=== PATIENT | female | born 1965 | race Caucasian/White ===

== ENCOUNTER 2021-06-18 09:55 | Emergency (ER) | payer OTHER ==
[2021-06-18 10:00] VITALS: BP 126/72; PULSE 84; TEMP 98.7; BMI 28.3
[2021-06-18 11:54] LABS: BASO % 0.7 % (0-2.0); EOS % 4.6 % (0-4.5); HEMATOCRIT 38.4 % (32.4-45.2); HEMOGLOBIN 12.8 GM/dL (10.7-15.3); LYMPH % 22.9 % (8-40); MCH 27.1 pg (25.7-33.7); MCHC 33.2 g/dl (32.0-36.0); MEAN CELL VOLUME 81.4 fl (80-96); MEAN PLT VOLUME 6.9 fl (7.5-11.1); NEUT % 62.8 % (42.8-82.8); PLATELET COUNT 341 10^3/uL (134-434); RBC 4.72 M/mm3 (3.60-5.2); RDW 14.3 % (11.6-15.6); WHITE BLOOD COUNT 9.7 K/mm3 (4.0-10.0)
[2021-06-18 12:22] LABS: BLOOD UREA NITROGEN 18.6 mg/dL (7-18); CALCIUM 9.1 mg/dL (8.5-10.1)
[2021-06-18 12:23] LABS: ALBUMIN 3.6 g/dl (3.4-5.0)
[2021-06-18 12:25] LABS: CREATININE 0.8 mg/dL (0.55-1.3)
[2021-06-18 12:27] LABS: BILIRUBIN,TOTAL 0.3 mg/dL (0.2-1)
== END 2021-06-18 16:58 | disposition home or self-care (01) ==
LOC: JER 09:55
PROC: 3E03329 Introduction of Other Anti-infective into Peripheral Vein, Percutaneous Approach (ICD-10-PCS; principal; 2021-06-18)
PROC: 3E03329 Introduction of Other Anti-infective into Peripheral Vein, Percutaneous Approach (ICD-10-PCS; 2021-06-18)
PROC: 3E033GC Introduction of Other Therapeutic Substance into Peripheral Vein, Percutaneous Approach (ICD-10-PCS; 2021-06-18)
DX: K51.90 Ulcerative colitis, unspecified, without complications (principal)
CPT/HCPCS: 36415; 74177-TC; 80053; 83605; 83690; 85025; 99284-25; Q9967